=== PATIENT | male | born 1955 | race Caucasian/White ===

== ENCOUNTER → 2018-09-06 | Outpatient (CLI) | payer OTHER ==
--- NOTE | 2018-09-06 11:18 | MR ---
EXAMINATION TYPE: MR lumbar spine wo con DATE OF EXAM: 09/06/2018 COMPARISON: NONE HISTORY: Low back pain / Spondylosis TECHNIQUE: T1 and T2 axial and sagittal images of the lumbar spine are submitted. FINDINGS: There is no abnormal signal seen within the visualized spinal cord or paraspinal soft tissu es. At L1-2 there is no disc herniation or canal stenosis. No foraminal encroachment. At L2-3 there is mild disc desiccation. No disc herniation or canal stenosis. No foraminal encroachme nt. At L3-4 there is there is diffuse disc bulging with a focal left paracentral and lateral disc herniat ion with extension into the left neural foramina and compression of the left nerve root. Right neural foramina is patent. At L4-5 there is degenerative disc disease with facet arthropathy and broad-based central disc bulgin g. Ligamentum flavum hypertrophy noted. Mild bilateral foraminal encroachment and borderline central stenosis. At L5-S1 there is degenerative disc disease with circumferential broad-based disc bulging and hypertr ophic change facets. Question a spina bifida occulta at the lumbosacral junction. Due to slice imagin g is difficult to evaluate for spondylolysis. Suspect there may be a pars defect of L5 bilaterally. IMPRESSION: 1. There is a focal left paracentral and lateral disc herniation L3-L4. Impingement of nerve root is suggested. Disc signal appears to extend into the left neural foramina. 2. Multilevel degenerative disc disease and disc bulging with mild multilevel additional foraminal en croachment as discussed above. 3. Cannot exclude a pars defect at L5. Correlate clinically. 4. Broad-based central disc bulging L4-L5 with hypertrophic change of the facets and ligamentum flavu m contribute to borderline canal stenosis.
== END | disposition home or self-care (01) ==
LOC: RADMRIMAIN 10:35
PROVIDERS: ATTEND Physical Medicine & Rehabilitation
DX: M51.26 Other intervertebral disc displacement, lumbar region (principal); M51.36 Other intervertebral disc degeneration, lumbar region; M47.816 Spondylosis without myelopathy or radiculopathy, lumbar region
CPT/HCPCS: 72148